=== PATIENT | female | born 1975 | race Caucasian/White ===

== ENCOUNTER 2019-07-31 18:03 | Emergency (ER) | payer OTHER ==
[~2019-07-31] VITALS: Ht 167.6 cm; Wt 90.7 kg
[2019-07-31] MEDS ORDERED: CYMBALTA60 MG PO (18:15)
[2019-07-31] MEDS ORDERED: SYNTHROID125 MC1 PO (18:16)
[2019-07-31] MEDS ORDERED: SEROPHENE50 MG PO (18:16)
[2019-07-31 18:51] LABS: ABSOLUTE BASOPHILS 0.1 thou/uL (0.0-0.2); ABSOLUTE EOSINOPHILS 0.3 thou/uL (0.0-0.7); ABSOLUTE LYMPHOCYTES 2.6 thou/uL (0.8-5.3); ABSOLUTE MONOCYTES 0.7 thou/uL (0.0-1.2); ABSOLUTE NEUTROPHILS 5.7 thou/uL (1.6-8.1); BASOPHILS 0.7 %; EOSINOPHILS 3.4 %; HEMOGLOBIN 14.3 gm/dL (12.0-15.0); LYMPHOCYTES 27.7 %; MCH 28.8 pg (26.0-34.0); MCHC 34.2 g/dL (28.0-37.0); MCV 84.4 fL (80.0-100.0); MONOCYTES 7.4 %; MPV 8.8 fl. (7.2-11.1); NUCLEATED RBCS 0 /100WBC; PLATELET COUNT* 334 thou/uL (150-400); POLYS 60.8 %; RBC 4.97 mil/uL (4.20-5.00); RDW-CV 13.4 % (10.5-14.5); WBC 9.3 thou/uL (4.0-11.0)
[2019-07-31 18:52] LABS: URINE BILIRUBIN NEGATIVE (Negative); URINE BLOOD NEGATIVE (Negative); URINE CLARITY CLEAR; URINE COLOR YELLOW; URINE GLUCOSE-RANDOM NEGATIVE (Negative); URINE KETONES NEGATIVE (Negative); URINE LEUKOCYTES-REFLEX NEGATIVE (Negative); URINE NITRITE-REFLEX NEGATIVE (Negative); URINE PROTEIN NEGATIVE (Negative); URINE SPECIFIC GRAVITY <= 1.005 (1.005-1.030); URINE UROBILINOGEN 0.2 E.U./dl (0.2-1.0)
[2019-07-31 19:05] LABS: CREATININE 0.8 mg/dL (0.6-1.3); POTASSIUM 3.6 mmol/L (3.5-5.1)
[2019-07-31 19:09] LABS: ALBUMIN 3.8 g/dL (3.4-5.0); TOTAL BILIRUBIN 0.4 mg/dL (<0.1-1.0); TOTAL PROTEIN 7.5 g/dL (6.4-8.2)
[2019-07-31] MEDS ORDERED: CIPRO500 MG PO (21:09)
[2019-07-31] MEDS ORDERED: FLAGYL500 M1 PO (21:09)
[2019-07-31] MEDS ORDERED: IBUPROFEN 800800 M1 PO (21:09)
[2019-07-31] MEDS ORDERED: NORCO 5-325 TA1 EAC1 PO (21:09)
[2019-07-31] MEDS ORDERED: PHENERGAN 25 MG25 M1 PO (21:15)
[2019-07-31 21:26] VITALS: BP 123/80
== END 2019-07-31 21:27 | disposition home or self-care (01) ==
LOC: M.ERS 18:03
PROVIDERS: Nurse Practitioner Family
DX: K52.9 Noninfective gastroenteritis and colitis, unspecified (principal); Z90.710 Acquired absence of both cervix and uterus; Z98.890 Other specified postprocedural states; Z88.8 Allergy status to other drugs, medicaments and biological substances